=== PATIENT | female | born 1990 | race Caucasian/White ===

== ENCOUNTER 2020-02-24 20:50 | Emergency (ER) | payer SELFPAY ==
--- NOTE | 2020-02-24 21:34 | EDM.PDOC ---
<Nichol Davies R - Last Filed: 02/24/20 21:20> ED HPI GENERAL MEDICAL PROBLEM - General Chief Complaint: General Stated Complaint: VAGINAL PROBLEM Time Seen by Provider: 02/24/20 20:55 Source of Information: Reports: Patient History Limitations: Reports: No Limitations - History of Present Illness INITIAL COMMENTS - FREE TEXT/NARRATIVE: Presents reporting pelvic pain. The patient states that 2 years ago she had a ParaGard IUD inserted. She had continuous cramping, spotting, a sensation it was moving around and discomfort. About a year ago she went and saw another INDUCTION COORDINATION ENGINEER with the intention of having the device removed. However the INDUCTION COORDINATION ENGINEER did an exam and determined that the IUD was well placed and convinced her to leave it in. However, the patient is not sexually active and due to the continuous aggravating symptoms, on 02/13/2020 she had the device removed. She states that she bled for 10 days afterwards. Since the removal she has had continuous low pelvic pain. She states the pain is better when she is laying on her stomach and worse with sitting or pressure from her work jeans. She is not sexually active and not on control. She has taken Tylenol, Aleve, ibuprofen, a muscle relaxant and Percocet. She states the muscle relaxant and Percocet was palliative enough for her to sleep. She states her temperature has been lower than normal and she feels rundown and fatigued. No dysuria, vaginal itch or discharge. No current vaginal bleeding. Abdomen Pain Score (Numeric/FACES): 6 - Related Data Allergies Allergy/AdvReac Type Severity Reaction Status Date / Time No Known Allergies Allergy Verified 02/24/20 21:12 Home Meds: Home Meds Doxycycline [Vibramycin] 100 mg PO BID 14 Days #28 tab 02/24/20 [Rx] metroNIDAZOLE [Metronidazole] 500 mg PO BID 14 Days #28 tablet 02/24/20 [Rx] Past Medical History - Past Health History Medical/Surgical History: Denies Medical/Surgical History Social & Family History - Family History Family Medical History: No Pertinent Family History - Tobacco Use Tobacco Use Status *Q: Current Every Day Tobacco User Years of Tobacco use: 10 Packs/Tins Daily: 0.1 - Caffeine Use Caffeine Use: Reports: None - Recreational Drug Use Recreational Drug Use: No ED ROS GENERAL - Review of Systems Review Of Systems: Comprehensive ROS is negative, except as noted in HPI. ED EXAM, GENERAL - Physical Exam Exam: See Below Exam Limited By: No Limitations General Appearance: Alert, Mild Distress (due to pain, anxiety) Ears: Normal External Exam Nose: Normal Inspection Throat/Mouth: Normal Inspection Head: Atraumatic, Normocephalic Neck: Normal Inspection Respiratory/Chest: No Respiratory Distress, Lungs Clear, Normal Breath Sounds Cardiovascular: Normal Peripheral Pulses, Regular Rate, Rhythm, No Murmur GI/Abdominal: Normal Bowel Sounds, Soft, Non-Tender, No Distention (Female) Exam: Normal External Exam, Adnexal Tenderness, Cervical Lesions (mild cervical erosion), Cervix Motion Tenderness (but no chandelier sign), Uterine Tenderness. No: Cervical Discharge, Vaginal Bleeding, Vaginal Discharge, Vaginal Tears Back Exam: Normal Inspection Extremities: Normal Inspection Neurological: Alert, Oriented, Normal Cognition Psychiatric: Normal Affect, Normal Mood Skin Exam: Warm, Dry, Intact, Normal Color, No Rash Lymphatic: No Adenopathy Departure - Departure Disposition: Home, Self-Care 01 Clinical Impression: Pelvic inflammatory disease (PID) - Discharge Information Prescriptions: metroNIDAZOLE [Metronidazole] 500 mg PO BID 14 Days #28 tablet Doxycycline [Vibramycin] 100 mg PO BID 14 Days #28 tab Instructions: Pelvic Inflammatory Disease, [id number] Referrals: José Bach [Ordering Only Provider] - Forms: ED Department Discharge Additional Instructions: Please be sure to follow-up with the [facility] or the women[facility] clinic. If your pain worsens you develop a fever or any other new symptoms that concern you please call your doctor right away or return to the ER. [facility] - Primary Care [address] [place] [address] [place] [address] The following information is given to patients seen in the emergency department who are being discharged to home. This information is to outline your options for follow-up care. We provide all patients seen in our emergency department with a follow-up referral. The need for follow-up, as well as the timing and circumstances, are variable depending upon the specifics of your emergency department visit. If you don't have a primary care physician on staff, we will provide you with a referral. We always advise you to contact your personal physician following an emergency department visit to inform them of the circumstance of the visit and for follow-up with them and/or the need for any referrals to a consulting specialist. The emergency department will also refer you to a specialist when appropriate. This referral assures that you have the opportunity for follow-up care with a specialist. All of these measure are taken in an effort to provide you with optimal care, which includes your follow-up. Under all circumstances we always encourage you to contact your private physician who remains a resource for coordinating your care. When calling for follow-up care, please make the office aware that this follow-up is from your recent emergency room visit. If for any reason you are refused follow-up, please contact the [facility] Emergency Department at and asked to speak to the emergency department charge nurse. Sepsis Event Note (ED) - Evaluation Sepsis Screening Result: No Definite Risk <Rodger Hernandez - Last Filed: 02/24/20 23:02> Course - Vital Signs Last Recorded V/S: Last Vital Signs Temp 96.5 F L 02/24/20 21:08 Pulse 107 H 02/24/20 21:08 Resp 18 02/24/20 21:08 BP 110/78 02/24/20 21:08 Pulse Ox 98 02/24/20 21:08 - Orders/Labs/Meds Orders: Active Orders 24 hr Category Date Time Status CHLAMYDIA AND GONORRHEA BY [facility] Ur[facility] 02/24/20 21:34 Received Doxycycline [Vibramycin] Med 02/24/20 22:58 Once 100 mg PO ONETIME ONE cefTRIAXone [Rocephin] 250 mg Med 02/24/20 22:58 Ordered Lidocaine 1% [Xylocaine-MPF 1%] 1 ml IM ONETIME metroNIDAZOLE Med 02/24/20 22:58 Once 500 mg PO ONETIME ONE Labs: Laboratory Tests 02/24/20 02/24/20 02/24/20 Range/Units 21:23 21:23 21:23 WBC 9.95 (4.0-11.0) K/uL RBC 5.06 (4.30-5.90) M/uL Hgb 14.1 (12.0-16.0) g/dL Hct 42.1 (36.0-46.0) % MCV 83.2 (80.0-98.0) fL MCH 27.9 (27.0-32.0) pg MCHC 33.5 (31.0-37.0) g/dL RDW Std Deviation 39.7 (28.0-62.0) fl RDW Coeff of Jordan 13 (11.0-15.0) % Plt Count 254 (150-400) K/uL MPV 10.90 (7.40-12.00) fL Neut % (Auto) 75.8 (48.0-80.0) % Lymph % (Auto) 17.3 (16.0-40.0) % [place] % (Auto) 5.3 (0.0-15.0) % Eos % (Auto) 1.3 (0.0-7.0) % Baso % (Auto) 0.3 (0.0-1.5) % Neut # (Auto) 7.5 H (1.4-5.7) K/uL Lymph # (Auto) 1.7 (0.6-2.4) K/uL [place] # (Auto) 0.5 (0.0-0.8) K/uL Eos # (Auto) 0.1 (0.0-0.7) K/uL Baso # (Auto) 0.0 (0.0-0.1) K/uL Nucleated RBC % 0.0 /100WBC Nucleated RBCs # 0 K/uL ESR 15 (0-19) mm/hr C-Reactive Protein 2.10 H (0.00-0.90) mg/dL Urine Color Urine Appearance Urine pH (5.0-8.0) Ur Specific [place] (1.001-1.035) Urine Protein (NEGATIVE) mg/dL Urine Glucose (UA) (NEGATIVE) mg/dL Urine Ketones (NEGATIVE) mg/dL Urine Occult Blood (NEGATIVE) Urine Nitrite (NEGATIVE) Urine Bilirubin (NEGATIVE) Urine Urobilinogen (<2.0) EU/dL Ur Leukocyte Esterase (NEGATIVE) Urine RBC (0-2/HPF) Urine WBC (0-5/HPF) Ur Epithelial Cells (NONE-FEW) Urine Bacteria (NEGATIVE) Urine HCG, Qual (NEGATIVE) Harmony species DNA (NEGATIVE) Gardnerella DNA Probe (NEGATIVE) Trichomonas DNA Probe (NEGATIVE) 02/24/20 02/24/20 02/24/20 Range/Units 21:34 21:36 21:36 WBC (4.0-11.0) K/uL RBC (4.30-5.90) M/uL Hgb (12.0-16.0) g/dL Hct (36.0-46.0) % MCV (80.0-98.0) fL MCH (27.0-32.0) pg MCHC (31.0-37.0) g/dL RDW Std Deviation (28.0-62.0) fl RDW Coeff of Jordan (11.0-15.0) % Plt Count (150-400) K/uL MPV (7.40-12.00) fL Neut % (Auto) (48.0-80.0) % Lymph % (Auto) (16.0-40.0) % [place] % (Auto) (0.0-15.0) % Eos % (Auto) (0.0-7.0) % Baso % (Auto) (0.0-1.5) % Neut # (Auto) (1.4-5.7) K/uL Lymph # (Auto) (0.6-2.4) K/uL [place] # (Auto) (0.0-0.8) K/uL Eos # (Auto) (0.0-0.7) K/uL Baso # (Auto) (0.0-0.1) K/uL Nucleated RBC % /100WBC Nucleated RBCs # K/uL ESR (0-19) mm/hr C-Reactive Protein (0.00-0.90) mg/dL Urine Color YELLOW Urine Appearance SLT CLOUDY Urine pH 7.0 (5.0-8.0) Ur Specific [place] 1.015 (1.001-1.035) Urine Protein NEGATIVE (NEGATIVE) mg/dL Urine Glucose (UA) NEGATIVE (NEGATIVE) mg/dL Urine Ketones NEGATIVE (NEGATIVE) mg/dL Urine Occult Blood NEGATIVE (NEGATIVE) Urine Nitrite POSITIVE H (NEGATIVE) Urine Bilirubin NEGATIVE (NEGATIVE) Urine Urobilinogen 0.2 (<2.0) EU/dL Ur Leukocyte Esterase NEGATIVE (NEGATIVE) Urine RBC 0-1 (0-2/HPF) Urine WBC 0-2 (0-5/HPF) Ur Epithelial Cells FEW (NONE-FEW) Urine Bacteria FEW (NEGATIVE) Urine HCG, Qual NEGATIVE (NEGATIVE) Harmony species DNA NEGATIVE (NEGATIVE) Gardnerella DNA Probe POSITIVE H (NEGATIVE) Trichomonas DNA Probe NEGATIVE (NEGATIVE) Departure - Departure Time of Disposition: 23:00 Condition: Good - Discharge Information *PRESCRIPTION DRUG MONITORING PROGRAM REVIEWED*: Not Applicable *COPY OF PRESCRIPTION DRUG MONITORING REPORT IN PATIENT KEZIA: Not Applicable Sepsis Event Note (ED) - Focused Exam Vital Signs: Vital Signs Temp Pulse Resp BP Pulse Ox 02/24/20 21:08 96.5 F L 107 H 18 110/78 98 - My Orders Last 24 Hours: My Active Orders 02/24/20 22:58 Doxycycline [Vibramycin] 100 mg PO ONETIME ONE cefTRIAXone [Rocephin] 250 mg Lidocaine 1% [Xylocaine-MPF 1%] 1 ml IM ONETIME metroNIDAZOLE 500 mg PO ONETIME ONE - Assessment/Plan Last 24 Hours: My Active Orders 02/24/20 22:58 Doxycycline [Vibramycin] 100 mg PO ONETIME ONE cefTRIAXone [Rocephin] 250 mg Lidocaine 1% [Xylocaine-MPF 1%] 1 ml IM ONETIME metroNIDAZOLE 500 mg PO ONETIME ONE Assessment:: Patient received in signout from prior provider at 10 PM. Labs show elevated inflammatory markers also Gardnerella positive. Given her relatively recent instrumentation her pain I do have concerns for pelvic inflammatory disease. That said her vital signs are good I do not see an indication for admission or IV treatment at this time. Patient was given a dose of ceftriaxone as well as her first doses of doxycycline and Flagyl here patient will continue on doxycycline and Flagyl for 14 days and will follow up as an outpatient. Return precautions discussed and understood.
[2020-02-24] MEDS ORDERED: Doxycycline 100 MG Cap PO ONE (22:58)
[2020-02-24] MEDS ORDERED: cefTRIAXone 250 MG in Lidocaine 1% 1 ML IM ONE (22:58)
[2020-02-24] MEDS ORDERED: metroNIDAZOLE 250 MG Tab PO ONE (22:58)
[2020-02-26 11:03] LABS: C.TRACHOMATIS BY TMA Negative (Negative); N.GONORRHOEAE BY TMA Negative (Negative)
== END 2020-02-24 23:31 | disposition home or self-care (01) ==
LOC: MW.ED 20:50
DX: N73.9 Female pelvic inflammatory disease, unspecified (principal); F17.210 Nicotine dependence, cigarettes, uncomplicated
CPT/HCPCS: 36415; 81001; 81025; 85025; 85652; 86140; 87480; 87491; 87510; 87591; 87660; 96372; 99284; A9270; J0696; J2001; 99283

== ENCOUNTER 2020-03-08 14:10 | Emergency (ER) | payer MEDICAID ==
--- NOTE | 2020-03-08 14:56 | EDM.PDOC ---
ED HPI GENERAL MEDICAL PROBLEM - General Chief Complaint: [employer] Problem Stated Complaint: CYST COMPLICATIONS Time Seen by Provider: 03/08/20 14:36 Source of Information: Reports: Patient History Limitations: Reports: No Limitations - History of Present Illness INITIAL COMMENTS - FREE TEXT/NARRATIVE: HISTORY AND PHYSICAL: History of present illness: Patient is a 30-year-old female who presents to the emergency room with complaints of right-sided pelvic pain. She states she was seen in the emergency room on 02/24/2020 for similar pain and at that time was diagnosed with PID and bacterial vaginosis. She was given IM Rocephin and prescribed doxycycline and Flagyl. She states she followed up with a provider in [facility] who did an ultrasound and told her that her right ovary was "falling". She was also informed she had multiple cysts on her ovary. She had and endometrial biopsy but states the provider told her the tissue looked normal so nothing was sent to pathology. She has had continued pain to her pelvis. Review of systems: As per history of present illness and below otherwise all systems reviewed and negative. Past medical history: As per history of present illness and as reviewed below otherwise noncontributory. Surgical history: As per history of present illness and as reviewed below otherwise noncontributory. Social history: See social history for further information Family history: As per history of present illness and as reviewed below otherwise noncontributory. Physical exam: General: Well developed and well nourished. Alert and orientated x 3. Nontoxic in appearance and in no acute distress. Vital signs are stable and have been reviewed by me. Nursing notes were reviewed. HEENT: Atraumatic, normocephalic, pupils equal and reactive bilaterally, negative for conjunctival pallor or scleral icterus, mucous membranes moist, TMs normal bilaterally, throat clear, neck supple, nontender, trachea midline. No drooling or trismus noted. No meningeal signs. No hot potato voice noted. Lungs: Clear to auscultation, breath sounds equal bilaterally, chest nontender. Normal work of breathing, no accessory muscles used. Heart: S1S2, regular rate and rhythm without overt murmur Abdomen: Soft, nondistended, nontender. Negative for masses or hepatosplenomegaly. Negative for costovertebral tenderness. Pelvis: Stable nontender. Genitourinary: Skin: Intact, warm, dry. No lesions or rashes noted. Hematologic: No petechiae or purpra. Mucosa appropriate color and normal nail bed color and refill. Extremities: Atraumatic, moves all extremities per self without difficulty or deficits, negative for cords or calf pain. Neurovascular unremarkable. Neuro: Awake, alert, oriented. Cranial nerves II through XII unremarkable. Cerebellum unremarkable. Motor and sensory unremarkable throughout. Exam nonfocal. Psychiatric: Mood and affect are appropriate. Normal thought process. Answering questions appropriately. Notes: Patient just had gonorrhea/chlamydia/BV testing done. She is currently still taking antibiotics for treatment of PID. 1.9 cm suspected hemorrhagic cyst or follicle in the left ovary. No left ovarian torsion. Patient has absolutely no pain on the left side. Right ovary is normal with no cyst or suspected ovarian torsion. There is trace pelvic free fluid. The endometrium is thickened measuring over 2 cm. This could be related to her recent endometrial biopsy. We did discuss the need for following up with her [employer], she has an appointment next week already scheduled. I have talked with the patient about today's findings, in addition to providing specific details for plan of care. Patient is still on her antibiotics, she has 2-4 days left to complete. Reassessment at the time of disposition demonstrates that the patient is in no acute distress. The patient is stable for discharge, counseling was provided and we discussed in great detail signs and symptoms that would prompt them to return to the Emergency Department. Medication, follow up and supportive care measures were reviewed and discussed. Voices understanding and is agreeable to plan of care. Denies any further questions or concerns at this time. Diagnostics: CBC, CMP, UA, Transvaginal U/S Therapeutics: Toradol IM Prescription: Diclofenac Impression: Pelvic Pain Plan: 1. Today your lab work was within normal limits. Please continue taking your antibiotic and follow-up with your [employer] in [facility]. You do have a small cyst on the left ovary, good blood flow. Right ovary is within normal limits without any noted cysts. You do have some endometrial thickening but this could be due to the recent biopsy you had. I would like you to follow-up as he may need repeat ultrasound for assessment of this. 2. I have given you a prescription for diclofenac. This is a nonnarcotic anti- inflammatory pain medication. Please do not take this in addition to ibuprofen, Aleve or any other NSAIDs. You may also take Tylenol with this medication. Gentle heat to the area. 3. We encourage you to follow up with your primary care provider and/or recommended specialist in the next few days for re-evaluation and further care/management. If your symptoms should worsen, new symptoms develop or any of the signs and symptoms we discussed should arise please return to the emergency room or call 911 (if needed). Definitive disposition and diagnosis as appropriate pending reevaluation and review of above. Pelvic Pain Score (Numeric/FACES): 10 - Related Data Allergies Allergy/AdvReac Type Severity Reaction Status Date / Time No Known Allergies Allergy Verified 03/08/20 14:44 Home Meds: Home Meds Doxycycline [Vibramycin] 100 mg PO BID 14 Days #28 tab 02/24/20 [Rx] metroNIDAZOLE [Metronidazole] 500 mg PO BID 14 Days #28 tablet 02/24/20 [Rx] Diclofenac Sodium [Voltaren] 75 mg PO BIDMEALS PRN #30 tab.cr 03/08/20 [Rx] Past Medical History - Past Health History Medical/Surgical History: Denies Medical/Surgical History Social & Family History - Family History Family Medical History: No Pertinent Family History - Caffeine Use Caffeine Use: Reports: None ED ROS GENERAL - Review of Systems Review Of Systems: Comprehensive ROS is negative, except as noted in HPI. ED EXAM, RENAL/ - Physical Exam Exam: See Below (See dictation) Course - Vital Signs Last Recorded V/S: Last Vital Signs Temp 98.2 F 03/08/20 14:44 Pulse 105 H 03/08/20 14:44 Resp 20 03/08/20 14:44 BP 142/74 H 03/08/20 14:44 Pulse Ox 100 03/08/20 14:44 - Orders/Labs/Meds Orders: Active Orders 24 hr Category Date Time Status CULTURE URINE [RM] Stat Lab 03/08/20 18:10 Received Labs: Laboratory Tests 03/08/20 03/08/20 03/08/20 Range/Units 15:11 15:11 18:10 WBC 11.47 H (4.0-11.0) K/uL RBC 4.93 (4.30-5.90) M/uL Hgb 13.7 (12.0-16.0) g/dL Hct 41.8 (36.0-46.0) % MCV 84.8 (80.0-98.0) fL MCH 27.8 (27.0-32.0) pg MCHC 32.8 (31.0-37.0) g/dL RDW Std Deviation 41.7 (28.0-62.0) fl RDW Coeff of Jordan 14 (11.0-15.0) % Plt Count 239 (150-400) K/uL MPV 11.00 (7.40-12.00) fL Neut % (Auto) 76.2 (48.0-80.0) % Lymph % (Auto) 16.8 (16.0-40.0) % [place] % (Auto) 5.1 (0.0-15.0) % Eos % (Auto) 1.6 (0.0-7.0) % Baso % (Auto) 0.3 (0.0-1.5) % Neut # (Auto) 8.7 H (1.4-5.7) K/uL Lymph # (Auto) 1.9 (0.6-2.4) K/uL [place] # (Auto) 0.6 (0.0-0.8) K/uL Eos # (Auto) 0.2 (0.0-0.7) K/uL Baso # (Auto) 0.0 (0.0-0.1) K/uL Nucleated RBC % 0.0 /100WBC Nucleated RBCs # 0 K/uL Sodium 138 (136-145) mmol/L Potassium 4.1 (3.5-5.1) mmol/L Chloride 103 (98-107) mmol/L Carbon Dioxide 25.6 (21.0-32.0) mmol/L BUN 12 (7.0-18.0) mg/dL Creatinine 1.1 H (0.6-1.0) mg/dL Est Cr Clr Drug Dosing 74.07 mL/min Estimated GFR (MDRD) 57.6 ml/min Glucose 93 (74-106) mg/dL Calcium 8.8 (8.5-10.1) mg/dL Total Bilirubin 0.3 (0.2-1.0) mg/dL AST 11 L (15-37) IU/L ALT 19 (14-63) IU/L Alkaline Phosphatase 59 (46-116) U/L Total Protein 7.3 (6.4-8.2) g/dL Albumin 3.4 (3.4-5.0) g/dL Globulin 3.9 (2.6-4.0) g/dL Albumin/Globulin Ratio 0.9 (0.9-1.6) Urine Color YELLOW Urine Appearance CLEAR Urine pH 6.0 (5.0-8.0) Ur Specific [place] 1.025 (1.001-1.035) Urine Protein NEGATIVE (NEGATIVE) mg/dL Urine Glucose (UA) NEGATIVE (NEGATIVE) mg/dL Urine Ketones NEGATIVE (NEGATIVE) mg/dL Urine Occult Blood NEGATIVE (NEGATIVE) Urine Nitrite NEGATIVE (NEGATIVE) Urine Bilirubin NEGATIVE (NEGATIVE) Urine Urobilinogen 0.2 (<2.0) EU/dL Ur Leukocyte Esterase TRACE H (NEGATIVE) Urine RBC 0-1 (0-2/HPF) Urine WBC 0-2 (0-5/HPF) Ur Epithelial Cells RARE (NONE-FEW) Urine Bacteria RARE (NEGATIVE) Meds: Medications Discontinued Medications Generic Name Dose Route Start Last Admin Trade Name Skipq PRN Reason Stop Dose Admin Ketorolac Tromethamine 60 mg 03/08/20 14:57 03/08/20 15:19 Toradol IM 03/08/20 14:58 60 mg ONETIME ONE Administration Departure - Departure Time of Disposition: 17:32 Disposition: Home, Self-Care 01 Clinical Impression: Pelvic pain - Discharge Information Prescriptions: Diclofenac Sodium [Voltaren] 75 mg PO BIDMEALS PRN #30 tab.cr PRN Reason: Pain Instructions: Pelvic Pain, Female, [id number] Referrals: PCP,None [Primary Care Provider] - Forms: ED Department Discharge Additional Instructions: The following information is given to patients seen in the emergency department who are being discharged to home. This information is to outline your options for follow-up care. We provide all patients seen in our emergency department with a follow-up referral. The need for follow-up, as well as the timing and circumstances, are variable depending upon the specifics of your emergency department visit. If you don't have a primary care physician on staff, we will provide you with a referral. We always advise you to contact your personal physician following an emergency department visit to inform them of the circumstance of the visit and for follow-up with them and/or the need for any referrals to a consulting specialist. The emergency department will also refer you to a specialist when appropriate. This referral assures that you have the opportunity for follow-up care with a specialist. All of these measure are taken in an effort to provide you with optimal care, which includes your follow-up. Under all circumstances we always encourage you to contact your private physician who remains a resource for coordinating your care. When calling for follow-up care, please make the office aware that this follow-up is from your recent emergency room visit. If for any reason you are refused follow-up, please contact the [facility] Emergency Department at and asked to speak to the emergency department charge nurse. [facility] Primary Care [address] [place] [id number] [address] Thank you for choosing the [facility] emergency department in [place] for your medical needs today. It was a pleasure caring for you. Today you were seen in the emergency department for pelvic pain. 1. Today your lab work was within normal limits. Please continue taking your antibiotic and follow-up with your [employer] in [facility]. You do have a small cyst on the left ovary, good blood flow. Right ovary is within normal limits without any noted cysts. You do have some endometrial thickening but this could be due to the recent biopsy you had. I would like you to follow-up as he may need repeat ultrasound for assessment of this. 2. I have given you a prescription for diclofenac. This is a nonnarcotic anti- inflammatory pain medication. Please do not take this in addition to ibuprofen, Aleve or any other NSAIDs. You may also take Tylenol with this medication. Gentle heat to the area. 3. We encourage you to follow up with your primary care provider and/or recommended specialist in the next few days for re-evaluation and further care/management. If your symptoms should worsen, new symptoms develop or any of the signs and symptoms we discussed should arise please return to the emergency room or call [phone] (if needed). Sepsis Event Note (ED) - Evaluation Sepsis Screening Result: No Definite Risk - Focused Exam Vital Signs: Vital Signs Temp Pulse Resp BP Pulse Ox 03/08/20 14:44 98.2 F 105 H 20 142/74 H 100 - My Orders Last 24 Hours: My Active Orders 03/08/20 18:10 CULTURE URINE [RM] Stat - Assessment/Plan Last 24 Hours: My Active Orders 03/08/20 18:10 CULTURE URINE [RM] Stat
[2020-03-08] MEDS ORDERED: Ketorolac 60 MG/2 ML SDV IM ONE (14:57)
[2020-03-08 15:42] LABS: CARBON DIOXIDE,CO2 25.6 mmol/L (21.0-32.0); POTASSIUM,K 4.1 mmol/L (3.5-5.1)
--- NOTE | 2020-03-08 17:22 | US ---
HISTORY: Right pelvic pain. TECHNIQUE: Transvaginal pelvic ultrasound. COMPARISON: No prior. FINDINGS: Uterus measures 8.8 x 6.2 x 4.8 cm in size. The endometrium appears hyperechoic and thickened measuring over 2 cm in thickness. No myometrial mass. - Right ovary measures 3 x 1.8 x 3 cm in size. Small follicles are present within the right ovary. Blood flow is detected within the right ovary without findings of torsion. - Left ovary measures 3.4 x 1.9 x 3.2 cm in size. There is a hypoechoic 1.9 cm structure within the left ovary which may reflect a small hemorrhagic follicle or cyst. Blood flow is detected within left ovary without findings of torsion. - Trace pelvic free fluid. IMPRESSION: 1. 1.9 cm suspected hemorrhagic cyst or follicle left ovary. No left ovarian torsion. 2. Normal right ovary. 3. Trace pelvic free fluid. 4. Thickened endometrium measuring over 2 cm. Recommend followup ultrasound for re-evaluation of endometrial thickness in 6-8 weeks. A persistently thickened endometrium at that examination could indicate hyperplasia. Dictated by Dean Bullard MD @ 03/08/2020 5:20:07 PM Dictated by: Dean Bullard MD @ 03/08/2020 17:20:14 (Electronically Signed)
== END 2020-03-08 18:45 | disposition home or self-care (01) ==
LOC: MW.ED 14:10
DX: R10.2 Pelvic and perineal pain (principal)
CPT/HCPCS: 36415; 76830; 80053; 81001; 85025; 87086; 96372; 99284; J1885; 99283

== ENCOUNTER 2021-03-31 13:26 | Emergency (ER) | payer SELFPAY ==
[2021-03-31] MEDS ORDERED: Ketorolac 30 MG/ML SDV IM STA (14:17)
--- NOTE | 2021-03-31 14:53 | CR ---
Indication: Injury and pain. Technique: Right 2nd finger 3 views. Comparison: None. Findings: Bones: Alignment is normal. No fractures or bone lesions. Joint spaces: Unremarkable. Soft tissues: Unremarkable. No sign of foreign body. Dictated by Rigoberto Hough MD @ 03/31/2021 2:51:03 PM (Electronically Signed)
[2021-03-31] MEDS ORDERED: Lidocaine 1% PF 2 ML SDV INJECT ONE (14:56)
[2021-03-31] MEDS ORDERED: Cephalexin 500 MG Cap PO ONE (15:39)
--- NOTE | 2021-03-31 15:43 | EDM.PDOC ---
ED HPI GENERAL MEDICAL PROBLEM - General Chief Complaint: Upper Extremity Injury/Pain Stated Complaint: INDEX FINGER ON RIGHT HAND INFECTED Time Seen by Provider: 03/31/21 14:10 - History of Present Illness INITIAL COMMENTS - FREE TEXT/NARRATIVE: CHIEF COMPLAINT(S): Right finger infected HISTORY OF PRESENT ILLNESS: This is a 31-year-old woman without any significant past medical history who comes to the emergency department with a chief complaint of right finger infection. The patient states that approximately 2 weeks ago she smashed her right index finger and since that time the nail broke off so she tore it off. She states that she is concerned because she is having increased pain in her right index finger and she thinks that it is becoming infected. In addition she is concerned that she may have nail left on the outside where the nail was removed. She states that she was cleaning it and soaking in salt water however she has had continued 5 out of 10 throbbing pain in this right index finger. She denies any redness or swelling. She states that she has not taken any medications for the pain. She denies any fevers or chills. She denies any numbness or tingling and states that the pain does not radiate anywhere. Pain is exacerbated by movement. There are no relieving factors. REVIEW OF SYSTEMS: Constitutional: Denies fever, chills. Cardiovascular: Denies chest pain Respiratory: Denies shortness of breath Skin: Denies any redness MSK: Positive for right index finger pain Neurological: Denies numbness, tingling PAST MEDICAL HISTORY: As per history of present illness and as reviewed below otherwise noncontributory. SURGICAL HISTORY: As per history of present illness and as reviewed below otherwise noncontributory. SOCIAL HISTORY: As per history of present illness and as reviewed below otherwise noncontributory. FAMILY HISTORY: As per history of present illness and as reviewed below otherwise noncontributory. EXAMINATION OF ORGAN SYSTEMS/BODY AREAS: Constitutional: Blood pressure is 117/66, heart rate 84, respiratory rate 20 with an oxygen saturation 9 9% on room air. Temperature 36.0 General: Well-appearing woman who is in no acute distress Psychiatric: Appropriate mood and affect. Cardiovascular: Regular, rate, and rhythm. No gallops, murmurs, or rubs. Bilateral upper extremity pulses symmetric and intact. Respiratory: Lungs clear to auscultation bilaterally. No wheezes, rales, or rhonchi. Musculoskeletal: The patient has full range of motion of the right index finger. There is no obvious swelling or redness to the distal aspect. There is evidence of some nail that has been removed with a partial avulsion on the lateral aspect without any active bleeding. Skin: No lesions or abrasions. No surrounding redness or swelling of the right distal finger. Neurological: Alert, GCS 15 distal sensation is intact MEDICAL DECISION MAKING AND COURSE IN THE ED WITH INTERPRETATION/REVIEW OF DIAGNOSTIC STUDIES: This is a 31-year-old woman without any significant past medical history who comes to the emergency department with partial nail avulsion without any evidence of obvious infection. At this time will obtain a right finger x-ray to evaluate for fracture given the crush injury. For pain relief we will provide the patient with a digital nerve block to help with the pain. She was amenable to this plan. We will reevaluate for retained foreign body such as nail after finger is cleaned and we have x-ray results. The radiological images were viewed by myself along with reading the report from the radiologist. Right index finger x-ray does not reveal any fractures or evidence of foreign body. After imaging I did perform a digital nerve block by injecting approximately 1 cc of 1% lidocaine on both medial lateral side of the right index finger. RN did clean off the patient's wound without any difficulty. On inspection there does not appear to be any evidence of retained nail or foreign body. There is no large amount of swelling or fluctuance of the cuticle. There does appear to be an avulsed nail in the area and I do believe this patient's pain is secondary to this and not secondary to retained foreign body. However there is a possibility of infection therefore we will start the patient on antibiotics and have her follow-up with primary care physician in 3 to 5 days. The patient was amenable to discharge at this time and had no further questions. She was given strict return precautions. DISPOSITION: The patient was discharged home in stable condition. The patient will follow up with primary care physician in 3 to 5 days CONDITION: As fair PROCEDURES: None FINAL IMPRESSION(S)/DIAGNOSES: 1. Acute right index finger partial nail avulsion [place] M.D. 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: - Infectious Disease History Infectious Disease History: Reports: Chicken Pox - Past Surgical History Female Surgical History: Reports: Other (See Below) Other Female Surgeries/Procedures: ovarian cyst and uterine mass removed via surgery Social & Family History - Family History Family Medical History: No Pertinent Family History - Tobacco Use Tobacco Use Status *Q: Never Tobacco User - Caffeine Use Caffeine Use: Reports: Coffee - Recreational Drug Use Recreational Drug Use: No Review of Systems - Review of Systems Review Of Systems: See Below ED EXAM, GENERAL - Physical Exam Exam: See Below Course - Vital Signs Last Recorded V/S: Last Vital Signs Temp 36.0 C L 03/31/21 13:34 Pulse 73 03/31/21 15:57 Resp 18 03/31/21 15:57 BP 117/67 03/31/21 15:57 Pulse Ox 100 03/31/21 15:57 - Orders/Labs/Meds Meds: Medications Discontinued Medications Generic Name Dose Route Start Last Admin Trade Name Benjamín PRN Reason Stop Dose Admin Cephalexin 500 mg 03/31/21 15:39 03/31/21 15:57 Cephalexin 500 Mg Cap PO 03/31/21 15:40 500 mg ONETIME ONE Administration Ketorolac Tromethamine 30 mg 03/31/21 14:17 03/31/21 14:45 Ketorolac 30 Mg/Ml Sdv IM 03/31/21 14:18 30 mg ONETIME STA Administration Lidocaine HCl 2 ml 03/31/21 14:56 03/31/21 15:18 Lidocaine 1% Pf 2 Ml Sdv INJECT 03/31/21 14:57 2 ml ONETIME ONE Administration Departure - Departure Time of Disposition: 15:41 Disposition: Home, Self-Care 01 Condition: Fair Clinical Impression: Nail avulsion - Discharge Information Prescriptions: cephALEXin [Cephalexin] 500 mg PO BID #10 capsule Diclofenac Sodium [Voltaren] 50 mg PO BID #14 tab.ec Instructions: Nail Avulsion Referrals: Roberta Alfaro MD [Primary Care Provider] - Forms: ED Department Discharge Additional Instructions: Your evaluated today on an emergent basis. At this time there was no evidence of any retained nail. I do believe your pain is secondary from a nail avulsion from the part of the nail that has been removed. At this time I recommend you keep the area clean with soap and water and we started you on Keflex which needs to be taken twice a day for the next 5 days. I did send you a prescription for diclofenac which can be used twice a day 50 mg for pain relief. Please use Tylenol 500 to 1000 mg every 6 hours for the next 2 days and then as needed after that. Give any worsening symptoms I had like you to return to the emergency department. Otherwise follow-up with your primary care physician in 3 to 5 days Your prescriptions were sent to [facility] [address] [place] [address] [place] [address] The patient is informed of any results of their evaluation and diagnostic workup and all questions are answered. They are given discharge instructions and return precautions. The patient is stable for discharge. The patient states they understand and agree with the plan and that they will return if their symptoms get worse or if they have any new concerns. The following information is given to patients seen in the emergency department who are being discharged to home. This information is to outline your options for follow-up care. We provide all patients seen in our emergency department with a follow-up referral. The need for follow-up, as well as the timing and circumstances, are variable depending upon the specifics of your emergency department visit. If you don't have a primary care physician on staff, we will provide you with a referral. We always advise you to contact your personal physician following an emergency department visit to inform them of the circumstance of the visit and for follow-up with them and/or the need for any referrals to a consulting specialist. The emergency department will also refer you to a specialist when appropriate. This referral assures that you have the opportunity for follow-up care with a specialist. All of these measure are taken in an effort to provide you with optimal care, which includes your follow-up. Under all circumstances we always encourage you to contact your private physician who remains a resource for coordinating your care. When calling for follow-up care, please make the office aware that this follow-up is from your recent emergency room visit. If for any reason you are refused follow-up, please contact the [facility] Emergency Department at and asked to speak to the emergency department charge nurse. Sepsis Event Note (ED) - Evaluation Sepsis Screening Result: No Definite Risk
== END 2021-03-31 16:01 | disposition home or self-care (01) ==
LOC: MW.ED 13:26
DX: S61.300A Unspecified open wound of right index finger with damage to nail, initial encounter (principal); W45.0XXA Nail entering through skin, initial encounter
CPT/HCPCS: 64450; 73140; 96372; 99283; A9270; J1885

== ENCOUNTER 2023-06-15 16:19 | Emergency (ER) | payer MEDICAID ==
[2023-06-15] MEDS: Morphine 4 MG/ML Syringe IVPUSH ONE (17:16)
[2023-06-15] MEDS: Ondansetron 4 MG/2 ML SDV IVPUSH ONE (17:16)
[2023-06-15 17:50] LABS: BASOPHILS ABSOLUTE AUTO 0.05 K/uL (0.00-0.20); BASOPHILS PERCENT AUTO 0.4 % (0.0-1.0); EOSINOPHILS ABSOLUTE AUTO 0.28 K/uL (0.00-0.45); EOSINOPHILS PERCENT AUTO 2.3 % (0.0-6.0); HEMATOCRIT 40.7 % (37.0-47.0); HEMOGLOBIN 13.7 g/dL (12.0-16.0); IMMATURE GRAN ABSOLUTE AUTO 0.05 K/uL (0.00-0.05); IMMATURE GRAN PERCENT AUTO 0.4 % (0.0-0.4); LYMPHOCYTES ABSOLUTE AUTO 2.37 K/uL (1.00-4.80); LYMPHOCYTES PERCENT AUTO 19.2 % (24.0-44.0); MEAN CORPUSCULAR HEMOGLOBIN 27.6 pg (28.0-32.0); MEAN CORPUSCULAR HGB CONC 33.7 g/dL (32.0-36.0); MEAN CORPUSCULAR VOLUME 81.9 fL (83.0-99.0); MEAN PLATELET VOLUME 10.8 fL (9.4-12.3); MONOCYTES ABSOLUTE AUTO 0.63 K/uL (0.00-0.80); MONOCYTES PERCENT AUTO 5.1 % (0.0-8.0); NEUTROPHILS ABSOLUTE AUTO 8.99 K/uL (1.80-7.70); NEUTROPHILS PERCENT AUTO 72.6 % (41.0-71.0); PLATELET COUNT,PLT 263 K/uL (150-400); RED BLOOD CELL COUNT 4.97 M/uL (4.10-5.30); WHITE BLOOD CELL COUNT,WBC 12.37 K/uL (3.9-11.3)
[2023-06-15 18:13] LABS: A/G RATIO 0.8 (0.9-1.6); ALBUMIN 3.3 g/dL (3.4-5.0); BILIRUBIN TOTAL 0.5 mg/dL (0.2-1.0); CALCIUM 9.1 mg/dL (8.5-10.1); CARBON DIOXIDE,CO2 28.1 mmol/L (21.0-32.0); EST CRCL DRUG DOSING (CG) 82.06 mL/min; POTASSIUM,K 4.5 mmol/L (3.5-5.1); PROTEIN TOTAL,TP 7.4 g/dL (6.4-8.2)
[2023-06-15 18:19] LABS: LACTIC ACID 0.7 mmol/L (0.4-2.0)
[2023-06-15] MEDS: Iopamidol 755 MG/ML 500 ML Multipack Bottle IVPUSH STA (18:51)
== END 2023-06-15 19:48 | disposition home or self-care (01) ==
LOC: MW.ED 16:19
DX: R10.13 Epigastric pain (principal); Z75.8 Other problems related to medical facilities and other health care
CPT/HCPCS: 36415; 74177; 80053; 83605; 83690; 84703; 85025; 96374; 96375; 99284; J2270; J2405; Q9967